=== PATIENT | male | born 1970 | race American Indian/Alaskan Native ===

== ENCOUNTER 2017-05-07 12:18 | Emergency (ER) | payer BC ==
--- NOTE | 2017-05-07 13:31 | Emergency Department Report ---
Stated Complaint: BLOOD PRESSURE Time Seen by Provider: 05/07/17 13:29 - HPI History of Present Illness: PT has been out of his bp medication for months. Pt went to have a physical today and was found to be hypertensive - ROS Review of Systems: - cp - toribio - sob - Exam Physical Exam: pt is alert and appropriate, gcs 15 MSE screening note: Focused history and physical exam performed. Due to findings the following was ordered: ekg, labs ED Disposition for MSE Condition: Stable
[2017-05-07 13:52] LABS: Basophils % (Auto) 0.5 % (0.0-1.8); Eosinophils % (Auto) 0.9 % (0.0-4.3); Hemoglobin 14.2 gm/dl (11.8-15.2); Mean Corpuscular HGB Conc 32 % (32-34); Mean Corpuscular Volume 80 fl (84-94); Platelet Count 152 K/mm3 (140-440); Red Blood Count 5.52 M/mm3 (3.65-5.03); Red Cell Distribution Width 15.2 % (13.2-15.2); White Blood Count 7.3 K/mm3 (4.5-11.0)
[2017-05-07 13:56] LABS: Mean Corpuscular Hemoglobin 26 pg (28-32)
[2017-05-07 14:07] LABS: Anion Gap 16 mmol/L; Blood Urea Nitrogen 13 mg/dL (9-20); Calcium 9.1 mg/dL (8.4-10.2); Carbon Dioxide 28 mmol/L (22-30); Chloride 101.8 mmol/L (98-107); Glucose 173 mg/dL (75-100); Potassium 3.6 mmol/L (3.6-5.0); Sodium 142 mmol/L (137-145)
[2017-05-07] MEDS ORDERED: CATAPRES ONE (19:24)
[2017-05-07] MEDS ORDERED: CATAPRES PO ONE (19:45)
--- NOTE | 2017-05-07 20:20 | Emergency Department Report ---
HPI - General Chief Complaint: Chest Pain Time Seen by Provider: 05/07/17 13:29 - HPI HPI: Room 7 The patient is a 46-year-old male presenting with a chief complaint of hypertension. The patient states today he went to a preemployment physical and was found to be hypertensive and advised to come to the ED for evaluation. The patient is asymptomatic and actively denies chest pain, shortness of breath, headache or dizziness currently. The patient states she's been off of his medication for approximately 3-4 months. The patient does not currently have a primary physician Location: Cardiovascular system Duration: [see above] Quality: Hypertensive Severity: Moderate Modifying factors: [see above] Context: [see above] Mode of transportation: Unknown ED Past Medical Hx - Past Medical History Previous Medical History?: Yes Hx Hypertension: Yes - Surgical History Past Surgical History?: No Additional Surgical History: Brain tumor removed - Family History Family history: no significant - Social History Smoking Status: Never Smoker Substance Use Type: None (denies illicit drug use), Alcohol (occasional) - Medications Home Medications: Home Medications Medication Instructions Recorded Confirmed Last Taken Type amLODIPine [Norvasc] 5 mg PO DAILY #90 tab 05/07/17 Unknown Rx ED Review of Systems ROS: Stated complaint: BLOOD PRESSURE Other details as noted in HPI Comment: All other systems reviewed and negative Constitutional: denies: chills, fever Eyes: denies: eye pain, eye discharge, vision change ENT: denies: ear pain, throat pain Respiratory: denies: cough, shortness of breath, wheezing Cardiovascular: denies: chest pain, palpitations Endocrine: no symptoms reported Gastrointestinal: denies: abdominal pain, nausea, diarrhea Genitourinary: denies: urgency, dysuria Musculoskeletal: denies: back pain, joint swelling, arthralgia Skin: denies: rash, lesions Neurological: denies: headache, weakness, paresthesias Psychiatric: denies: anxiety, depression Hematological/Lymphatic: denies: easy bleeding, easy bruising Physical Exam - Physical Exam Vital Signs: Vital Signs 05/07/17 05/07/17 05/07/17 13:35 16:49 18:40 Temperature 98.2 F 98.3 F Pulse Rate 92 H 87 75 Respiratory 18 18 18 Rate Blood Pressure 211/135 205/129 O2 Sat by Pulse 99 99 96 Oximetry 05/07/17 05/07/17 05/07/17 18:42 19:00 19:46 Temperature Pulse Rate 76 82 82 Respiratory 14 18 Rate Blood Pressure 198/132 198/132 O2 Sat by Pulse 98 Oximetry Physical Exam: GENERAL: The patient is well-developed well-nourished male lying on stretcher not appearing to be in acute distress. [] HEENT: Normocephalic. Atraumatic. Extraocular motions are intact. Patient has moist mucous membranes. No nystagmus NECK: Supple. Trachea midline CHEST/LUNGS: Clear to auscultation. There is no respiratory distress noted. HEART/CARDIOVASCULAR: Regular. There is no tachycardia. There is no gallop rub or murmur. ABDOMEN: Abdomen is soft, nontender. Patient has normal bowel sounds. There is no abdominal distention. SKIN: There is no rash. There is no edema. There is no diaphoresis. NEURO: The patient is awake, alert, and oriented. The patient is cooperative. The patient has no focal neurologic deficits. The patient has normal speech. Cranial nerves II through XII grossly intact, no drift MUSCULOSKELETAL: There is no evidence of acute injury. ED Course Vital Signs 05/07/17 05/07/17 05/07/17 13:35 16:49 18:40 Temperature 98.2 F 98.3 F Pulse Rate 92 H 87 75 Respiratory 18 18 18 Rate Blood Pressure 211/135 205/129 O2 Sat by Pulse 99 99 96 Oximetry 05/07/17 05/07/17 05/07/17 18:42 19:00 19:46 Temperature Pulse Rate 76 82 82 Respiratory 14 18 Rate Blood Pressure 198/132 198/132 O2 Sat by Pulse 98 Oximetry ED Medical Decision Making - Lab Data Result diagrams: 05/07/17 13:39 05/07/17 13:39 Laboratory Tests 05/07/17 05/07/17 05/07/17 13:39 13:39 13:39 WBC 7.3 RBC 5.52 H Hgb 14.2 Hct 44.0 MCV 80 L MCH 26 L MCHC 32 RDW 15.2 Plt Count 152 Lymph % (Auto) 18.3 Morrill % (Auto) 7.0 Eos % (Auto) 0.9 Baso % (Auto) 0.5 Lymph # 1.3 Morrill # 0.5 Eos # 0.1 Baso # 0.0 Seg Neutrophils % 73.3 H Seg Neutrophils # 5.4 Sodium 142 Potassium 3.6 Chloride 101.8 Carbon Dioxide 28 Anion Gap 16 BUN 13 Creatinine 1.0 Estimated GFR > 60 BUN/Creatinine Ratio 13.00 Glucose 173 H Calcium 9.1 Troponin T < 0.010 - EKG Data -: EKG Interpreted by Me EKG shows normal: sinus rhythm Rate: normal - EKG Data When compared to previous EKG there are: previous EKG unavailable Interpretation: other (no ischemic changes seen) - Differential Diagnosis hypertension, diabetes Critical care attestation.: If time is entered above; I have spent that time in minutes in the direct care of this critically ill patient, excluding procedure time. ED Disposition Clinical Impression: Hypertension, Elevated random blood glucose level Disposition: TO HOME OR SELFCARE Is pt being admited?: No Does the pt Need Aspirin: No Condition: Stable Instructions: Hypertension (ED), Hyperglycemia, Non-Diabetic (ED) Additional Instructions: Return to the emergency department immediately should you develop worsening symptoms, fever, inability to tolerate food or liquid or any other concerns. Prescriptions: amLODIPine [Norvasc] 5 mg PO DAILY #90 tab Referrals: [facility] [Outside] - 3-5 Days JULY PEREZ MD [Staff Physician] - 3-5 Days (Dr. Perez is a primary physician. Please follow up with him or the [place] [facility] for further evaluation/management of your blood pressure and evaluation of your blood sugar) Time of Disposition: 22:40
[2017-05-07] MEDS ORDERED: APRESOLINE IV ONE ×2 (21:38→22:04)
[2017-05-07 23:24] VITALS: BP 161/106
== END 2017-05-07 23:26 | disposition home or self-care (01) ==
LOC: ED 12:18
DX: I10 Essential (primary) hypertension (principal); R03.0 Elevated blood-pressure reading, without diagnosis of hypertension
CPT/HCPCS: 36415; 80048; 84484; 85025; 93005; 93010; 96374; 96376; 99283; J0360